=== PATIENT | male | born 1975 | race African-American/Black ===

== ENCOUNTER 2017-02-17 15:20 | Emergency (ER) | payer MEDICAID, OTHER ==
[~2017-02-17] VITALS: Ht 180.3 cm; Wt 100.0 kg
[2017-02-17] MEDS ORDERED: SODIUM CHLORIDE 0.9% 1,000 ML IV ONE (16:11)
[2017-02-17] MEDS ORDERED: ONDANSETRON HCL 4MG/2ML VIAL IV STA (16:11)
[2017-02-17] MEDS ORDERED: PANTOPRAZOLE SODIUM 40 MG/VIAL IV STA (16:11)
[2017-02-17] MEDS ORDERED: FAMOTIDINE 20MG/2ML VIAL IV STA (16:11)
[2017-02-17 16:27] LABS: BASOPHILS % 0.6 % (0.0-2.0); EOSINOPHILS % 0.1 % (0.0-5.0); HEMATOCRIT. 46.9 % (42.0-52.0); HEMOGLOBIN. 15.9 g/dL (14.0-18.0); LYMPHOCYTES % 17.3 % (20.0-50.0); MEAN CORPUSCULAR HEMOGLOBIN 30.7 pg (28.0-32.0); MEAN CORPUSCULAR HGB CONC 33.8 g/dL (31.0-37.0); MEAN CORPUSCULAR VOLUME 90.8 fL (80.0-94.0); MEAN PLATELET VOLUME 7.9 fl (7.4-10.4); MONOCYTES % 9.6 % (2.0-8.0); NEUTROPHILS % 72.4 % (40.0-76.0); PLATELET 233 x1000/uL (130-400); RED BLOOD CELL COUNT 5.16 mill/uL (4.7-6.1); RED CELL DISTRIBUTION WIDTH 13.4 % (11.6-14.6); WHITE BLOOD COUNT 8.1 x1000/uL (4.5-11.0)
[2017-02-17 16:32] LABS: CHLORIDE 107 mEq/L (98-107); INDEX HEMOLYSI 1 (1-3); INDEX ICTERIC 1 (1-4); INDEX LIPEMIC 1 (1-3)
[2017-02-17 16:36] LABS: ANION GAP 11; CALCIUM 9.5 mg/dL (8.5-10.1); CARBON DIOXIDE 28 mEq/L (21-32); LIPASE 101 IU/L (73-393); PARTIAL THROMBOPLASTIN TIME 24.1 sec (24.0-34.0); PROTHROMBIN TIME 10.8 sec; UREA NITROGEN BLOOD 13 mg/dL (7-21)
[2017-02-17 16:41] LABS: ALANINE AMINOTRANSFERASE 33 IU/L (13-61); eGFR > 60 mL/min (>60)
[2017-02-17 17:57] VITALS: BP 131/79
== END 2017-02-17 17:59 | disposition home or self-care (01) ==
LOC: ER 15:21
DX: K29.70 Gastritis, unspecified, without bleeding (principal); K27.9 Peptic ulcer, site unspecified, unspecified as acute or chronic, without hemorrhage or perforation; K92.0 Hematemesis; F20.9 Schizophrenia, unspecified
CPT/HCPCS: 36415; 80053; 83690; 85025; 85610; 85730; 96361; 96374; 96375; 99284; C9113; J2405; J3490; J7030

== ENCOUNTER 2019-10-19 13:29 | Emergency (ER) | payer MEDICAID ==
[~2019-10-19] VITALS: Ht 188 cm; Wt 68.0 kg
[2019-10-19] MEDS ORDERED: LORAZEPAM 1MG TABLET PO ONE (21:45)
[2019-10-20 10:51] LABS: CLARITY URINE CLOUDY (CLEAR); COLOR URINE YELLOW (YELLOW); KETONES URINE NEGATIVE (NEGATIVE); LEUKOCYTE ESTERASE URINE NEGATIVE (NEGATIVE); NITRITE URINE NEGATIVE (NEGATIVE); OCCULT BLOOD URINE NEGATIVE (NEGATIVE); PROTEIN URINE NEGATIVE (NEGATIVE)
[2019-10-20 11:49] LABS: *AMPHETAMINES SCREEN URINE NEGATIVE (NEGATIVE); *BARBITURATES SCREEN URINE NEGATIVE (NEGATIVE)
[2019-10-20 11:50] LABS: *BENZODIAZEPINES SCREEN URINE NEGATIVE (NEGATIVE); *COCAINE SCREEN URINE NEGATIVE (NEGATIVE); CANNABINOID URINE SCREEN NEGATIVE (NEGATIVE); OPIATES URINE SCREEN NEGATIVE (NEGATIVE); PHENCYCLIDINE URINE SCREEN NEGATIVE (NEGATIVE)
[2019-10-20 11:52] LABS: METHADONE URINE SCREEN NEGATIVE (NEGATIVE)
[2019-10-20 16:05] VITALS: BP 129/69
== END 2019-10-20 16:06 | disposition home or self-care (01) ==
LOC: ER 13:29
DX: F22 Delusional disorders (principal); F20.9 Schizophrenia, unspecified; Z86.73 Personal history of transient ischemic attack (TIA), and cerebral infarction without residual deficits
CPT/HCPCS: 80305; 81003; 99284

== ENCOUNTER 2024-06-21 10:17 | Emergency (ER) | payer MEDICAID ==
[~2024-06-21] VITALS: Ht 180.3 cm; Wt 90.0 kg
[2024-06-21 10:28] VITALS: O2SAT 100
[2024-06-21 12:41] LABS: HEMATOCRIT 37.2 % (42.0-52.0); HEMOGLOBIN 12.2 g/dL (14.0-18.0); MEAN CORPUSCULAR HEMOGLOBIN 31.1 pg (28.0-32.0); MEAN CORPUSCULAR HGB CONC 32.8 g/dL (31.0-37.0); MEAN CORPUSCULAR VOLUME 94.7 fL (80.0-94.0); PLATELET 249 x1000/uL (130-400); RED BLOOD CELL COUNT 3.93 mill/uL (4.7-6.1); RED CELL DISTRIBUTION WIDTH 13.7 % (11.6-14.6); WHITE BLOOD COUNT 6.5 x1000/uL (4.5-11.0)
[2024-06-21] MEDS: ACETAMINOPHEN 500MG TABLET PO ONE (12:41)
[2024-06-21 12:46] LABS: CHLORIDE 110 mEq/L (98-107); POTASSIUM 4.3 mEq/L (3.5-5.1); SODIUM 138 mEq/L (136-145)
[2024-06-21 12:47] LABS: CALCIUM 9.1 mg/dL (8.7-10.4); CARBON DIOXIDE 24 mEq/L (21-32)
[2024-06-21 12:52] LABS: CREATININE 0.8 mg/dL (0.6-1.3); GLUCOSE 135 mg/dL (70-105); UREA NITROGEN BLOOD 16 mg/dL (9-23)
[2024-06-21 13:00] VITALS: TEMP 98.6
[2024-06-21] MEDS ORDERED: IBUP-2029 MT (13:22)
[2024-06-21] MEDS ORDERED: CEPH500T MT (13:22)
[2024-06-21 13:56] VITALS: BP 127/64; PULSE 88; RESP 18
[2024-06-21] MEDS: KETOROLAC 30MG/ML VIAL IM STA (13:56)
== END 2024-06-21 14:20 | disposition home or self-care (01) ==
LOC: ER 10:31
DX: L03.116 Cellulitis of left lower limb (principal); F32.A Depression, unspecified; Z86.73 Personal history of transient ischemic attack (TIA), and cerebral infarction without residual deficits
CPT/HCPCS: 99285; 93971; 80048; 85027; 36415; 96372; J1885